=== PATIENT | female | born 1995 | race American Indian/Alaskan Native ===

== ENCOUNTER 2017-02-24 11:28 | Emergency (ER) | payer SELFPAY ==
[2017-02-24] MEDS ORDERED: TETRACAINE 0.5% OU STA (12:55)
[2017-02-24] MEDS ORDERED: FUL-GLO OP ONE (12:55)
--- NOTE | 2017-02-24 14:04 | Emergency Department Report ---
ED Eye Problem HPI - General Chief complaint: Eye Problems Stated complaint: LT EYE REDNESS/SWOLLEN Time Seen by Provider: 02/24/17 12:49 Source: patient Mode of arrival: Ambulatory Limitations: No Limitations - History of Present Illness Initial comments: PT c/o left eye pain since yesterday. PT states she wears daily contacts and noticed the pain prior to taking out her contact. PT states last night she took out her contacts and flushed her eye with OTC drops but the pain increased. PT states this morning she noticed a spot over her eye and her eye redness and pain was worse. Pt denies any injury. PT states threw out her contacts last night and states they were only 1 week old. PT states she does have glasses but she did not bring them to the ED MD chief complaint: eye pain -: Gradual, days(s) Onset Description: gradual Location: left eye If Injury: none Eye Symptoms: redness, pain, discharge, blurry vision, photophobia Severity scale (0 -10): 6 Consistency: constant Context: contact lens use Associated Symptoms: headache. denies: fever Treatments Prior to Arrival: OTC eye drops - Related Data Patient Tetanus UTD: Yes Previous Rx's Medication Instructions Recorded Last Taken Type Acetaminophen/Codeine [Tylenol #3] 1 tab PO Q6H PRN #12 tab 02/24/17 Unknown Rx Erythromycin [Erythromycin Ophth 1 cm OS QID 7 Days 02/24/17 Unknown Rx Oint] Ibuprofen [Motrin] 600 mg PO Q8H PRN #15 tablet 02/24/17 Unknown Rx Allergies Allergy/AdvReac Type Severity Reaction Status Date / Time No Known Allergies Allergy Unverified 02/24/17 12:14 ED Review of Systems ROS: Stated complaint: LT EYE REDNESS/SWOLLEN Other details as noted in HPI Comment: All other systems reviewed and negative Constitutional: denies: fever Eyes: eye pain, eye discharge Respiratory: denies: cough Genitourinary: denies: abnormal menses Skin: other (eye lid feels swollen ) ED Past Medical Hx - Past Medical History Previous Medical History?: No - Surgical History Past Surgical History?: No - Social History Smoking Status: Never Smoker Substance Use Type: None - Medications Home Medications: Home Medications Medication Instructions Recorded Confirmed Last Taken Type Acetaminophen/Codeine [Tylenol #3] 1 tab PO Q6H PRN #12 tab 02/24/17 Unknown Rx Erythromycin [Erythromycin Ophth 1 cm OS QID 7 Days 02/24/17 Unknown Rx Oint] Ibuprofen [Motrin] 600 mg PO Q8H PRN #15 tablet 02/24/17 Unknown Rx ED Physical Exam - General Limitations: No Limitations General appearance: alert, in no apparent distress - Head Head exam: Present: atraumatic, normocephalic, normal inspection - Eye Eye exam: Present: PERRL, EOMI, conjunctival injection (L ), other (pt did not bring her glasses to the ED, vision checked by pt counting fingers - grossly intact ). Absent: periorbital swelling, periorbital tenderness Pupils: Present: normal accommodation - Expanded Eye Exam Expanded Eyelids: Swelling: Left (trace ) Pupils: Regular, Round: Bilateral, Reactive: Bilateral Sclera/Conjunctival: Injection: Left (+ corneal abrasion over pupil on Wood's lamp exam ), Exudate: Left (tearing ) Anterior chamber: Normal Inspection: Bilateral With correction: No - ENT ENT exam: Present: normal exam, normal external ear exam - Neck Neck exam: Present: normal inspection, full ROM - Respiratory Respiratory exam: Present: normal lung sounds bilaterally. Absent: respiratory distress - Cardiovascular Cardiovascular Exam: Present: regular rate, normal rhythm - Extremities Exam Extremities exam: Present: normal inspection, full ROM - Back Exam Back exam: Present: normal inspection, full ROM - Neurological Exam Neurological exam: Present: alert, oriented X3, normal gait - Psychiatric Psychiatric exam: Present: normal affect, normal mood - Skin Skin exam: Present: warm, dry, intact, normal color ED Course Vital Signs 02/24/17 02/24/17 12:15 15:08 Temperature 98.2 F Pulse Rate 77 78 Respiratory 18 16 Rate Blood Pressure 118/84 Blood Pressure 129/80 [Left] O2 Sat by Pulse 98 100 Oximetry - Reevaluation(s) Reevaluation #1: 02/24/17 14:33 PT aware of PE findings and plan of care. PT states she is concerned due to financial constraints and cost of medication. PT aware she will need to follow up with her eye doctor. PT given strict return precautions. PT advised not to wear contacts at this time and not to drive. PT has no questions - Pulse Oximetry Interpretation Digit-Finger Initial Pulse Oximetry Readin Actions Taken: none ED Medical Decision Making - Differential Diagnosis conjunctivitis, corneal abrasion, Critical Care Time: No Critical care attestation.: If time is entered above; I have spent that time in minutes in the direct care of this critically ill patient, excluding procedure time. ED Disposition Clinical Impression: Corneal abrasion Qualifiers: Encounter type: initial encounter Laterality: left Qualified Code(s): S05.02XA - Injury of conjunctiva and corneal abrasion without foreign body, left eye, initial encounter Disposition: TO HOME OR SELFCARE Is pt being admited?: No Does the pt Need Aspirin: No Condition: Stable Instructions: Corneal Abrasion (ED), Keratitis (ED) Additional Instructions: No driving or Alcohol after taking Tylenol #3 for pain Call your eye doctor on Sunday Do not wear contacts at this time. Return to the ED if worsening or concerns. Prescriptions: Acetaminophen/Codeine [Tylenol #3] 1 tab PO Q6H PRN #12 tab PRN Reason: Pain , Severe (7-10) Erythromycin [Erythromycin Ophth Oint] 1 cm OS QID 7 Days Ibuprofen [Motrin] 600 mg PO Q8H PRN #15 tablet PRN Reason: Pain Referrals: PRIMARY CARE, [Primary Care Provider] - 3-5 Days CHITRA APODACA MD [Staff Physician] - 3-5 Days Time of Disposition: 14:39
[2017-02-24 15:09] VITALS: BP 129/80
== END 2017-02-24 15:09 | disposition home or self-care (01) ==
LOC: ED 11:28
DX: S05.02XA Injury of conjunctiva and corneal abrasion without foreign body, left eye, initial encounter (principal); X58.XXXA Exposure to other specified factors, initial encounter; Y93.9 Activity, unspecified; Y92.9 Unspecified place or not applicable; Y99.9 Unspecified external cause status
CPT/HCPCS: 99282